=== PATIENT | female | born 1995 | race African-American/Black ===

== ENCOUNTER 2018-08-07 03:10 | Emergency (ER) | payer SELFPAY ==
[~2018-08-07] VITALS: Ht 160 cm; Wt 65.8 kg
[2018-08-07 07:42] VITALS: BP 131/76
[2018-08-07] MEDS ORDERED: cefTRIAXone SOD 1,000 MG VL IM ONE (08:00)
[2018-08-07] MEDS ORDERED: KETOROLAC TROMETH 60MG/2ML VIAL IM ONE (08:00)
== END 2018-08-07 16:54 | disposition home or self-care (01) ==
LOC: ER 03:20
DX: R23.4 Changes in skin texture (principal); J02.9 Acute pharyngitis, unspecified
CPT/HCPCS: 96372; 99283; J0696; J1885

== ENCOUNTER 2018-08-12 10:34 | Emergency (ER) | payer SELFPAY ==
[~2018-08-12] VITALS: Ht 157.5 cm; Wt 70.3 kg
[2018-08-12 10:42] VITALS: BP 145/111
== END 2018-08-12 21:45 | disposition left against medical advice (07) ==
LOC: EDBD 10:34 → ER 10:34
DX: R11.2 Nausea with vomiting, unspecified (principal); R19.7 Diarrhea, unspecified; Z53.21 Procedure and treatment not carried out due to patient leaving prior to being seen by health care provider